=== PATIENT | female | born 1975 | race Asian ===

== ENCOUNTER → 2024-02-04 16:06 | Outpatient (REF) | payer OTHER, SELFPAY | LOC: WDC 16:06 | PROVIDERS: ATTENDING PHYSICIAN Obstetrics & Gynecology; FAMILY PHYSICIAN Family Medicine | DX: Z12.31 Encounter for screening mammogram for malignant neoplasm of breast (principal) | CPT/HCPCS: 77063; 77067 ==

== ENCOUNTER → 2024-02-12 10:42 | Outpatient (REF) | payer OTHER, SELFPAY | LOC: HWRAD 10:42 | PROVIDERS: ATTENDING PHYSICIAN Internal Medicine Gastroenterology; FAMILY PHYSICIAN Family Medicine | DX: B19.10 Unspecified viral hepatitis B without hepatic coma (principal) | CPT/HCPCS: 76700 ==

== ENCOUNTER → 2025-01-09 10:26 | Outpatient (REF) | payer OTHER, SELFPAY | LOC: RAD 10:26 | PROVIDERS: ATTENDING PHYSICIAN Internal Medicine Gastroenterology; FAMILY PHYSICIAN Family Medicine | DX: B19.10 Unspecified viral hepatitis B without hepatic coma (principal) | CPT/HCPCS: 76700 ==

== ENCOUNTER 2025-02-11 11:00 | Outpatient (RCR) | payer OTHER, SELFPAY | END 2025-02-11 23:59 | disposition home or self-care (01) | LOC: RPT 11:00 | PROVIDERS: ATTENDING PHYSICIAN Family Medicine | DX: S33.5XXD Sprain of ligaments of lumbar spine, subsequent encounter (principal); Z73.6 Limitation of activities due to disability | CPT/HCPCS: 97110; 97140; 97162 ==

== ENCOUNTER → 2025-03-27 15:02 | Outpatient (REF) | payer OTHER, SELFPAY | LOC: PAVMRI 15:02 | PROVIDERS: ATTENDING PHYSICIAN Family Medicine | DX: M54.50 Low back pain, unspecified (principal); M46.1 Sacroiliitis, not elsewhere classified | CPT/HCPCS: 72148 ==

== ENCOUNTER 2025-03-30 12:35 | Outpatient (RCR) | payer OTHER, SELFPAY | END 2025-03-30 23:59 | disposition home or self-care (01) | LOC: RPT 12:35 | PROVIDERS: ATTENDING PHYSICIAN Family Medicine | DX: S33.5XXD Sprain of ligaments of lumbar spine, subsequent encounter (principal); X58.XXXD Exposure to other specified factors, subsequent encounter; Z73.6 Limitation of activities due to disability | CPT/HCPCS: 97110; 97140 ==

== ENCOUNTER → 2025-07-16 11:32 | Outpatient (REF) | payer OTHER, SELFPAY | LOC: RAD 11:32 | PROVIDERS: ATTENDING PHYSICIAN Internal Medicine Gastroenterology; FAMILY PHYSICIAN Family Medicine | DX: B19.10 Unspecified viral hepatitis B without hepatic coma (principal) | CPT/HCPCS: 76700 ==